=== PATIENT | male | born 1935 | race Caucasian/White ===

== ENCOUNTER 2018-04-22 20:11 | Inpatient (IN) | payer OTHER ==
[~2018-04-22] VITALS: Ht 182.9 cm; Wt 70.3 kg
--- NOTE | ~2018-04-22 | HC ---
[facility] [place] [address] CONSULTATION Name: ELEONORA DUVAL Room #: 459-P [facility] IN M.R.#: [id number] Admission: 04/22/18 ������������������ Attend Phys: Gareth Mcgraw MD Discharge: 04/23/18 ������������������ Date of : 37 Report #: [id number] THIS REPORT FOR: //name// CC: Vince SILVA HISTORY OF PRESENT ILLNESS: The patient is an 82-year-old gentleman with diabetes, hypertension, dyslipidemia and remote bypass surgery (2010) who presents following a syncopal episode. I was asked to see him in this regard. His history comes from interview of the patient as well as review of provided outpatient records, which are summarized in the note. He made his 2-day trip back to [place] last evening. He was sitting at the kitchen table eating dinner, became lightheaded and passed out. His reported to him that he was out may be no more than a second or two. Paramedics were summoned and he was brought to the Emergency Department and subsequently admitted. CT angiography was negative for pulmonary embolism. EKG demonstrated sinus rhythm with left anterior hemiblock. He denies prior syncope. No history of palpitations. No chest pain, pressure or ischemic type symptoms. He sees his manufacturing sr engineer, Dr. Juarez Silva, at regularly. No prior history of syncope. He does not typically check blood pressure readings at home, although when he was in [place] at his exercise club, he checked blood pressures, which were generally in the high range 150/90. He has had occasional balance issues and rare episodes of dizziness although nothing recently. ALLERGIES: No known drug allergies. MEDICATIONS: Include metformin 1000 mg twice daily, quinapril 40 mg daily at night. He did not take his dose last night prior to this episode. Zetia 10 mg, Lipitor 20 mg daily, hydrochlorothiazide 12.5 mg daily and aspirin and meloxicam. PAST MEDICAL HISTORY: Medical records have been reviewed and include a history of remote bypass surgery in 2010, diabetes, hypertension, dyslipidemia. SOCIAL HISTORY: He is a technical account representative, is . No smoking. FAMILY HISTORY: Unremarkable for premature coronary disease. REVIEW OF SYSTEMS: All systems negative except as that noted above. PHYSICAL EXAMINATION: GENERAL: A pleasant gentleman in no distress. VITAL SIGNS: Blood pressure is 134/74, heart rate of 52 and regular. He is afebrile. HEENT: There are neither xanthelasma, subcutaneous xanthomata, [place] [address] CONSULTATION Name: ELEONORA DUVAL Room #: 9-[facility] IN [facility].#: [id number] Admission: 04/22/18 ������������������ Attend Phys: Gareth Mcgraw MD Discharge: 04/23/18 ������������������ Date of : 37 Report #: [id number] digital cyanosis or kyphoscoliosis present. CHEST: Clear to auscultation and percussion. CARDIOVASCULAR: Regular rate and rhythm with normal S1, S2. No murmurs or rubs. ABDOMEN: Soft and nontender. EXTREMITIES: Without cyanosis, clubbing or edema. Radial pulses are 2+. NEUROLOGIC: He is alert with a nonfocal exam. LABORATORY DATA: Sodium 139, potassium 3.7, creatinine 1.0. Glucose 124. Troponin 0.06 and 0.11. LDL of 44. White count 7.1, hemoglobin 13, hematocrit 38, platelet count 232. TSH 1.55. CTA of the chest demonstrates no evidence of pulmonary embolism. RADIOLOGICAL DATA: Chest x-ray is normal. Carotid duplex demonstrates moderate 60% right ICA stenosis, left internal plaquing. IMPRESSION: 1. Syncope, rule out primary rhythm abnormality, possibly shira dysrhythmia versus orthostasis or hypotension from medications. 2. Coronary artery disease with remote bypass. 3. Diabetes. 4. Hypertension. RECOMMENDATIONS: 1. Echocardiogram with Doppler. 2. No driving for an event free interval.. 3. A 30-day event recorder. 4. I will be happy to arrange the above noted testing. The patient reports his preference of wanting to follow up with his long-term manufacturing sr engineer, Dr. Juarez Silva at . 5. He has been instructed to call to get in to see Dr. Silva. Thank you for asking me to participate in his care. ��������������������������������������������� ���������������������������������������� By: ��������������������������������������������� 0814 1320 Alessio De MD, FACC /nt
[2018-04-22 20:21] VITALS: BP 179/95
[2018-04-22] MEDS ORDERED: METFORMIN HCL500 MG PO (20:35)
[2018-04-22] MEDS ORDERED: QUINAPRIL HCL40 MG PO (20:36)
[2018-04-22] MEDS ORDERED: FLEXERIL PO (20:37)
[2018-04-22] MEDS ORDERED: LIPITOR 20 MG T20 M1 PO (20:37)
[2018-04-22] MEDS ORDERED: VITAMIN B-12500 MCG PO (20:38)
[2018-04-22] MEDS ORDERED: HYDROCHLOROTH12.5 M1 PO (20:39)
[2018-04-22] MEDS ORDERED: MOBIC7.5 MG PO (20:39)
[2018-04-22] MEDS ORDERED: LUMIGAN2.5 M1 OP (20:40)
[2018-04-22] MEDS ORDERED: DORZOLAMIDE-TI1 EACH OPHTHALMIC (20:41)
[2018-04-22] MEDS ORDERED: ASPIR 8181 MG PO (20:41)
[2018-04-22] MEDS ORDERED: VITAMIN D1000 UNI1 PO (20:42)
[2018-04-22 21:02] LABS: ABSOLUTE NEUTROPHILS 4.6 thou/uL (1.4-8.2); BASOPHILS 0.5 % (0.0-2.0); EOSINOPHILS 1.8 % (0.0-3.0); HEMATOCRIT 38.4 % (42.0-52.0); HEMOGLOBIN 13.2 gm/dL (14.0-18.0); LYMPHOCYTES 23.8 % (24.0-44.0); MCH 33.4 pg (26.0-34.0); MCHC 34.4 g/dL (28.0-37.0); MCV 96.9 fL (80.0-100.0); MONOCYTES 9.5 % (1.0-8.0); PLATELET COUNT 232 thou/uL (150-400); POLYS 64.4 % (36.0-66.0); RBC 3.97 mil/uL (4.50-6.00); WBC 7.1 thou/uL (4.0-11.0)
[2018-04-22 21:03] LABS: CALCIUM 9.3 mg/dL (8.5-10.1); CREATININE 1.2 mg/dL (0.7-1.3); POTASSIUM 4.2 mmol/L (3.5-5.1)
[2018-04-22 21:12] LABS: ALBUMIN 3.4 g/dL (3.4-5.0); TOTAL BILIRUBIN 0.3 mg/dL (<0.1-1.0); TOTAL PROTEIN 7.3 g/dL (6.4-8.2); TROPONIN-I 0.06 ng/mL (<0.06)
[2018-04-22] MEDS ORDERED: ZETIA10 MG PO (23:04)
[2018-04-23 00:36] VITALS: BP 154/80
[2018-04-23 00:50] VITALS: BP 148/68
[2018-04-23 04:55] VITALS: BP 106/39
--- NOTE | 2018-04-23 05:09 | NUR ---
PATIENT NEW ADMIT, ADMITTED FOR SYNCOPE, NO SYNOPE EPISODE THIS SHIFT.PATIENT AMBULATES TO THE BATHROOM SLOWLY WITH UNSTABLE GAITS. PATIENT NEEDS MINIMUM ASSISTANCE WITH ADL, BED MOBILITY, TRANSFER AND TOILETING. PATIENT ENCOURAGED FLUIDS. PATIENT HAD A LOW BLOOD PRESSURE OF 106/39 AT 0500, SOCIAL SERVICE LIAISON CALLED NEW ORDER OF NORMAL SALINE, GOING AT 100ML XI BAG. PATIENT IN BED ASLEEP AT THIS TIME BREATHING REGULAR AND UNLABOURED.
[2018-04-23 06:16] LABS: ANION GAP 8 mmol/L (7-16); BUN 29 mg/dL (7-18); CALCIUM 8.8 mg/dL (8.5-10.1); CHLORIDE 102 mmol/L (98-107); CHOLESTEROL 118 mg/dL (<200); CO2 29 mmol/L (21-32); GLUCOSE 124 mg/dL (74-106); HDL CHOLESTEROL 68 mg/dL (>40); LDL CHOLESTEROL 44 mg/dL (<100); POTASSIUM 3.7 mmol/L (3.5-5.1); SODIUM 139 mmol/L (136-145); TC:HDL 1.7 Ratio (Not establshd); TRIGLYCERIDE 30 mg/dL (<150); TROPONIN-I 0.11 ng/mL (<0.06); VLDL 6 mg/dL (<40)
[2018-04-23 06:18] LABS: SERUM ASSESSMENT Slight Lipemia
[2018-04-23 07:40] VITALS: BP 138/74
--- NOTE | 2018-04-23 10:45 | NUR ---
pt back to room after test/procedure. walking with universal branch consultant to bed from bathroom. intro to cm and dcp " oh good because i am going home today and need to look for my ipad."/an. [place] passed on information to bedside staff rt question about looking for his ipad. will cont following as needed for dc needs.
[2018-04-23] MEDS ORDERED: ACETAMINOPHEN325 M1 PO (11:09)
[2018-04-23 11:51] VITALS: BP 138/74
--- NOTE | 2018-04-23 12:11 | NUR ---
PT ASSESSED AT START OF SHIFT. PT STATES STILL HAVING INTERMITTENT MILD DIZZINESS. SEEN BY DR. ARIAS THIS AM AND STATES HE NEEDS TO GO BACK TO HIS SPIN TABLE OPERATOR FOR HOLTER MONITORING. PT REFUSED TO HAVE FALL PRECAUTIONS W/ YELLOW BAND AND SOCKS BUT WILL ALOW BED ALARM. ON HER WAY TO [facility] [employer] DR[facility] PT FOR DISCHARGE. PT DECLINED PHYSICAL THERAPY CONSULT. DR. WANG NOTIFIED AND WILL ALLOW PT TO GO HOME. HE KNOWS NOT TO DRIVE UNTIL RELEASED BY HIS
--- NOTE | 2018-04-23 12:13 | 2DMMODE ---
[facility] [place] [address] 2 D/M-MODE ECHOCARDIOGRAM Name: ELEONORA DUVAL Room #: 459-P ADM IN .R.#: [id number] ������������� Admission: 04/22/18 ������������� Attend Phys: Gareth Mcgraw MD Discharge: ��� ������������� ��� Date of : 37 Date of Service: 04/23/18 1213 �� Report #: [id number] �������� ��������������������������������������������[id number] THIS REPORT FOR: //name// APPROVED REPORT Study performed: 04/23/2018 10:11:11 EXAM: Comprehensive 2D, Doppler, and color-flow Echocardiogram Patient Location: Echo lab Room #: [facility] Status: routine BSA: 1.91 HR: 94 bpm BP: 138/74 mmHg Indications Diabetes CAD Hypertension/HDD CABG 2D Dimensions IVC: 19.00 mm Volumes Left Atrial Volume (Systole) Single Plane 4CH: 42.09 mL Single Plane 2CH: 50.87 mL LA ESV Index: 29.00 mL/m2 Aortic Valve AoV Peak Jj.: 1.21 m/s AO Peak Gr.: 5.82 mmHg LVOT Max P.37 mmHg LVOT Max V: 1.05 m/s Pulmonary Valve PV Peak Jj.: 0.97 m/s PV Peak Gr.: 3.72 mmHg Pulmonary Vein P Vein S: 0.67 m/s P Vein A: 0.22 m/s P Vein D: 0.34 m/s P Vein A Dur.: 101.5 msec P Vein S/D Ratio: 1.97 Tricuspid Valve TR Peak Jj.: 1.75 m/s [facility] [address] [place] [address] 2 D/M-MODE ECHOCARDIOGRAM Name: ELEONORA DUVAL Room #: 459-P ADM IN M.Juliane.#: [id number] ������������� Admission: 04/22/18 ������������� Attend Phys: Gareth Mcgraw MD Discharge: ��� ������������� ��� Date of : 37 Date of Service: 04/23/18 1213 �� Report #: [id number] �������� ��������������������������������������������[id number] TR Peak Gr.: 12.29 mmHg PA Pressure: 17.00 mmHg Left Ventricle The left ventricle is normal size. There is normal LV segmental wall motion. Mild concentric left ventricular hypertrophy. The left ventricular systolic function is normal. The left ventricular ejection fraction is within the normal range. LVEF is 55-60%. This study is not technically sufficient to allow evaluation of the LV diastolic function. Right Ventricle The right ventricle is normal size. The right ventricular systolic function is normal. Atria The left atrium size is normal. The right atrium size is normal. Aortic Valve The aortic valve is mildly calcified. Trace to mild aortic regurgitation. There is no aortic valvular stenosis. Mitral Valve The mitral valve is normal in structure. Trace to mild mitral regurgitation. No evidence of mitral valve stenosis. Tricuspid Valve The tricuspid valve is normal in structure. There is trace tricuspid regurgitation. Estimated PAP 17 mmHg. There is no pulmonary hypertension. Pulmonic Valve The pulmonary valve is normal in structure. There is no pulmonic valvular regurgitation. Great Vessels The aortic root is normal in size. IVC is normal in size and collapses >50% with inspiration. Pericardium There is no pericardial effusion. <Conclusion> The left ventricular systolic function is normal. There is normal LV segmental wall motion. [facility] [address] [place] [address] 2 D/M-MODE ECHOCARDIOGRAM Name: ELEONORA DUVAL Room #: 459-P ADM IN .R.#: [id number] ������������� Admission: 04/22/18 ������������� Attend Phys: Gareth Mcgraw MD Discharge: ��� ������������� ��� Date of : 37 Date of Service: 04/23/18 121 �� Report #: [id number] �������� ��������������������������������������������[id number] LVEF is 55-60%. The aortic valve is mildly calcified. Trace to mild aortic regurgitation, no stenosis. The mitral valve is normal in structure. Trace to mild mitral regurgitation. There is trace tricuspid regurgitation. Estimated pulmonary artery pressure of 17 mmHg. There is no pericardial effusion. ��������������������������������������������� <ELECTRONICALLY SIGNED> ���������������������������������������� By: Alessio De MD, [facility] ��������������������������������������������� 04/23/181212 12 12 Alessio De MD, FACC /INF
--- NOTE | 2018-04-23 13:09 | NUR ---
ORDERS RECEIVIED FOR EVAL AND TREAT HOWEVER Pt DISCHARGED FROM THE HOSPITAL PRIOR TO BEING SEEN
--- NOTE | 2018-04-23 17:00 | EKG ---
[place] [address] [facility] [place] [address] ELECTROCARDIOGRAM REPORT Name: ELEONORA DUVAL Room #: 459-P [facility] IN M.R.#: [id number] ������������������ Admission: 04/22/18 ������������������ Attend Phys: Gareth Mcgraw MD Discharge: 04/23/18 ������������������ Date of : 37 Report #: [id number] ����������������������������������������������������������������� [id number] THIS REPORT FOR: //name// [facility] ED Test Date: 2018-04-22 Test Time: 20:18:09 Pat Name: ELEONORA DUVAL Department: Room: 459 Gender: M Sr. Unix System Administrator: JOSE FRANCISCO : 1935 Requested By: Ramona Rodriguez Order Number: [id number] MD: Alessio De Measurements Intervals [place] Rate: 90 P: 71 GA: 185 QRS: -66 QRSD: 159 T: 93 QT: 395 QTc: 484 Interpretive Statements Sinus tachycardia Occasional premature ventricular and supraventricular complexes RBBB and LAFB Left ventricular hypertrophy No previous ECG available for comparison Electronically Signed On 04-23-2018 17:00:29 CDT by Alessio De [email or web address] ��������������������������������������������� <ELECTRONICALLY SIGNED> ���������������������������������������� By: Alessio De MD, [facility] ��������������������������������������������� 04/23/18 1700 17 17 Alessio De MD, FAC /EPI
== END 2018-04-23 13:04 | disposition home or self-care (01) | DRG 74 ==
LOC: ER 20:11 → 4W 23:49 → EROBS 23:49 → 4W 04-23 00:40
PROVIDERS: Nurse Practitioner Family; Student in an Organized Health Care Education/Training Program; ADMIT Internal Medicine
DX: G90.8 Other disorders of autonomic nervous system (principal); R55 Syncope and collapse; I25.10 Atherosclerotic heart disease of native coronary artery without angina pectoris; I10 Essential (primary) hypertension; E11.40 Type 2 diabetes mellitus with diabetic neuropathy, unspecified; E78.5 Hyperlipidemia, unspecified; R79.1 Abnormal coagulation profile; M19.90 Unspecified osteoarthritis, unspecified site; M62.84 Sarcopenia; E55.9 Vitamin D deficiency, unspecified; Z95.1 Presence of aortocoronary bypass graft; Z79.82 Long term (current) use of aspirin; Z79.84 Long term (current) use of oral hypoglycemic drugs; Z79.899 Other long term (current) drug therapy; I49.9 Cardiac arrhythmia, unspecified